=== PATIENT | male | born 1950 | race Caucasian/White ===

== ENCOUNTER 2017-05-27 09:45 | Inpatient (IN) | payer OTHER ==
[~2017-05-27] VITALS: Ht 180.3 cm; Wt 86.3 kg
[2017-05-27] MEDS ORDERED: KLONOPIN1 MG PO (10:02)
[2017-05-27 10:55] LABS: BASOPHIL % 0.2 % (0-2)
[2017-05-27 11:04] LABS: PLATELET COUNT 107 x10^3mcL (130-400)
[2017-05-27 11:07] LABS: CARBON DIOXIDE 20.6 mmol/L (21-32); CHLORIDE SERUM 99 mmol/L (98-107); GFR1 > 60 mL/min; GLUCOSE SERUM 105 mg/dL (74-106); POTASSIUM SERUM 3.6 mmol/L (3.5-5.1); SODIUM SERUM 131 mmol/L (136-145)
[2017-05-27 11:13] LABS: ALKALINE PHOSPHATASE 52 U/L (46-116); ALT/SGPT 46 U/L (16-63); AST/SGOT 66 U/L (15-37); TOTAL PROTEIN, SERUM 6.4 g/dL (6.4-8.2)
[2017-05-27 11:21] LABS: ALBUMIN 2.9 g/dL (3.4-5.0)
[2017-05-27 13:09] VITALS: BP 106/67
[2017-05-27 13:16] VITALS: Ht 180.3 cm; Wt 86.3 kg
[2017-05-27 13:59] LABS: T3 TOTAL 0.92 ng/mL
[2017-05-27 14:04] LABS: FREE T4 1.26 ng/dL (0.76-1.46); FREE THYROXINE INDEX 2.7 ug/dL (1.4-4.5); T4(THYROXINE) 8.4 ug/dL (4.7-13.3)
[2017-05-27 14:25] LABS: CHOLESTEROL/HDL RATIO 9.8; PHOSPHOROUS 2.5 mg/dL (2.5-4.9)
[2017-05-27 15:25] VITALS: BP 143/64
[2017-05-27 16:20] VITALS: BP 118/70; BP 18/70
[2017-05-27 22:06] VITALS: BP 132/76
[2017-05-27 22:17] LABS: microscopic required? YES; urine erythrocyte TRACE (NEGATIVE)
[2017-05-27 22:25] LABS: AMPHETAMINE QUAL UR NONE DETECTED (NEG <=1000)
[2017-05-28 05:33] VITALS: BP 128/71
[2017-05-28 06:52] LABS: BASOPHIL % 0.2 % (0-2)
[2017-05-28 07:04] LABS: CALCIUM 7.7 mg/dL (8.5-10.1); CARBON DIOXIDE 22.3 mmol/L (21-32); CHLORIDE SERUM 98 mmol/L (98-107); GFR1 > 60 mL/min; GLUCOSE SERUM 90 mg/dL (74-106); MAGNESIUM 2.1 mg/dL (1.8-2.4); PHOSPHOROUS 2.1 mg/dL (2.5-4.9); POTASSIUM SERUM 3.7 mmol/L (3.5-5.1); SODIUM SERUM 130 mmol/L (136-145)
[2017-05-28 07:07] LABS: PLATELET COUNT 85 x10^3mcL (130-400); RED CELL DISTRIBUTION WIDTH 15.1 % (11.5-14.5)
[2017-05-28 09:15] VITALS: BP 121/68; BP 125/70
[2017-05-28 13:20] VITALS: BP 121/66
[2017-05-28 17:58] VITALS: BP 138/96
[2017-05-28 21:55] VITALS: BP 117/70
[2017-05-29 06:00] LABS: BASOPHIL % 0.3 % (0-2)
[2017-05-29 06:01] LABS: PLATELET COUNT 86 x10^3mcL (130-400)
[2017-05-29 06:16] VITALS: BP 141/84
[2017-05-29 06:34] LABS: CALCIUM 7.7 mg/dL (8.5-10.1); CARBON DIOXIDE 25.1 mmol/L (21-32); CHLORIDE SERUM 100 mmol/L (98-107); GFR1 > 60 mL/min; GLUCOSE SERUM 91 mg/dL (74-106); MAGNESIUM 2.1 mg/dL (1.8-2.4); PHOSPHOROUS 2.4 mg/dL (2.5-4.9); POTASSIUM SERUM 4.1 mmol/L (3.5-5.1); SODIUM SERUM 135 mmol/L (136-145)
[2017-05-29 09:52] VITALS: BP 102/58
[2017-05-29] MEDS ORDERED: LIPI20 PO (09:57)
[2017-05-29] MEDS ORDERED: PLA75 PO (09:57)
[2017-05-29] MEDS ORDERED: MECLIZINE HCL12.5 MG PO (09:57)
[2017-05-29] MEDS ORDERED: ECO81 PO (09:57)
[2017-05-29] MEDS ORDERED: TEN25 PO (09:57)
[2017-05-29 12:03] VITALS: BP 101/61
[2017-05-29 15:56] VITALS: BP 101/61
[2017-05-29 17:34] VITALS: BP 140/77
== END 2017-05-29 17:57 | DRG 67 ==
LOC: ED 09:45 → DU 12:06
PROVIDERS: Emergency Medicine Emergency Medical Services; Family Medicine
DX: I65.22 Occlusion and stenosis of left carotid artery (principal); G93.41 Metabolic encephalopathy; N17.0 Acute kidney failure with tubular necrosis; E44.0 Moderate protein-calorie malnutrition; E87.1 Hypo-osmolality and hyponatremia; E86.0 Dehydration; E83.39 Other disorders of phosphorus metabolism; I10 Essential (primary) hypertension; K76.0 Fatty (change of) liver, not elsewhere classified; E78.1 Pure hyperglyceridemia; F41.1 Generalized anxiety disorder; Z87.891 Personal history of nicotine dependence; Z68.26 Body mass index [BMI] 26.0-26.9, adult
CPT/HCPCS: 82962; 83880; 84439; 87804; 97110-GP; 97116-GP; 97530-GP; J7030; Q0092; Q9967

== ENCOUNTER 2017-06-06 09:43 | Inpatient (IN) | payer OTHER ==
[~2017-06-06] VITALS: Ht 180.3 cm; Wt 87.5 kg
[~2017-06-06 09:43] MED LIST: ECO81 PO; KLONOPIN1 MG PO; LIPI20 PO; MECLIZINE HCL12.5 MG PO; PLA75 PO; TEN25 PO
[2017-06-06 09:57] VITALS: Ht 180.3 cm; Wt 87.5 kg
[2017-06-06] MEDS ORDERED: TRAZODONE50 M1 PO (11:26)
[2017-06-06 11:59] LABS: BASOPHIL % 0.7 % (0-2); PLATELET COUNT 221 x10^3mcL (130-400); RED CELL DISTRIBUTION WIDTH 14.9 % (11.5-14.5)
[2017-06-06 12:10] VITALS: BP 137/65
[2017-06-06 12:13] LABS: microscopic required? YES; urine erythrocyte NEGATIVE (NEGATIVE)
[2017-06-06 12:36] LABS: AMPHETAMINE QUAL UR NONE DETECTED (NEG <=1000)
[2017-06-06 13:01] LABS: CALCIUM 8.7 mg/dL (8.5-10.1); CARBON DIOXIDE 27.3 mmol/L (21-32); CHLORIDE SERUM 95 mmol/L (98-107); GFR1 > 60 mL/min; GLUCOSE SERUM 106 mg/dL (74-106); POTASSIUM SERUM 3.7 mmol/L (3.5-5.1); SODIUM SERUM 133 mmol/L (136-145)
[2017-06-06 13:05] LABS: ALKALINE PHOSPHATASE 101 U/L (46-116); ALT/SGPT 36 U/L (16-63); AST/SGOT 42 U/L (15-37); BILIRUBIN TOTAL 2.2 mg/dL (0.20-1.00)
[2017-06-06 13:06] LABS: ALBUMIN 3.1 g/dL (3.4-5.0)
[2017-06-06 13:20] LABS: CK-MB 4.3 ng/mL (0-3.6)
[2017-06-06 13:21] VITALS: BP 137/65
[2017-06-06 14:29] LABS: MAGNESIUM 2.7 mg/dL (1.8-2.4); PHOSPHOROUS 3.9 mg/dL (2.5-4.9)
[2017-06-06 14:40] LABS: T3 TOTAL 1.06 ng/mL
[2017-06-06 14:52] LABS: FREE T4 1.42 ng/dL (0.76-1.46); FREE THYROXINE INDEX 3.5 ug/dL (1.4-4.5); T4(THYROXINE) 10.8 ug/dL (4.7-13.3)
[2017-06-06 18:15] VITALS: BP 160/73
[2017-06-06 18:36] VITALS: BP 123/67
[2017-06-06 21:17] VITALS: BP 120/72
[2017-06-07 05:02] VITALS: BP 111/70
[2017-06-07 06:46] LABS: CALCIUM 7.8 mg/dL (8.5-10.1); CARBON DIOXIDE 23.6 mmol/L (21-32); CHLORIDE SERUM 99 mmol/L (98-107); CREATININE SERUM 0.9 mg/dL (0.7-1.3); GFR1 > 60 mL/min; GLUCOSE SERUM 94 mg/dL (74-106); POTASSIUM SERUM 3.2 mmol/L (3.5-5.1); SODIUM SERUM 134 mmol/L (136-145)
[2017-06-07 06:54] LABS: BASOPHIL % 0.5 % (0-2); PLATELET COUNT 172 x10^3mcL (130-400)
[2017-06-07 08:12] LABS: RED CELL DISTRIBUTION WIDTH 14.9 % (11.5-14.5)
[2017-06-07 08:38] VITALS: BP 112/61
[2017-06-07 13:15] VITALS: BP 125/71
[2017-06-07 19:05] VITALS: BP 133/76
[2017-06-08 00:15] VITALS: BP 104/71
[2017-06-08 03:00] VITALS: BP 123/60
[2017-06-08 05:53] LABS: BASOPHIL % 0.6 % (0-2); PLATELET COUNT 158 x10^3mcL (130-400)
[2017-06-08 05:55] LABS: RED CELL DISTRIBUTION WIDTH 15.2 % (11.5-14.5)
[2017-06-08 06:01] LABS: CALCIUM 7.5 mg/dL (8.5-10.1); CARBON DIOXIDE 27.3 mmol/L (21-32); CHLORIDE SERUM 103 mmol/L (98-107); CREATININE SERUM 0.7 mg/dL (0.7-1.3); GFR1 > 60 mL/min; GLUCOSE SERUM 112 mg/dL (74-106); POTASSIUM SERUM 3.9 mmol/L (3.5-5.1); SODIUM SERUM 136 mmol/L (136-145)
[2017-06-08 07:36] VITALS: BP 117/74
[2017-06-08 10:44] LABS: MAGNESIUM 2.4 mg/dL (1.8-2.4); PHOSPHOROUS 3.8 mg/dL (2.5-4.9)
[2017-06-08 14:03] VITALS: BP 105/61
[2017-06-08 17:32] VITALS: BP 124/67
[2017-06-08 21:56] VITALS: BP 137/64
[2017-06-09 05:14] VITALS: BP 129/66
[2017-06-09 07:17] LABS: BASOPHIL % 0.3 % (0-2); PLATELET COUNT 164 x10^3mcL (130-400)
[2017-06-09 07:20] LABS: RED CELL DISTRIBUTION WIDTH 14.8 % (11.5-14.5)
[2017-06-09 07:30] LABS: CALCIUM 7.4 mg/dL (8.5-10.1); CARBON DIOXIDE 27.5 mmol/L (21-32); CHLORIDE SERUM 100 mmol/L (98-107); CREATININE SERUM 0.8 mg/dL (0.7-1.3); GFR1 > 60 mL/min; GLUCOSE SERUM 87 mg/dL (74-106); MAGNESIUM 2.1 mg/dL (1.8-2.4); POTASSIUM SERUM 3.9 mmol/L (3.5-5.1); SODIUM SERUM 136 mmol/L (136-145)
[2017-06-09 08:51] VITALS: BP 140/74
[2017-06-09 14:00] VITALS: BP 116/77
[2017-06-09 17:00] VITALS: BP 140/84
[2017-06-09 21:14] VITALS: BP 132/80
[2017-06-10 05:04] VITALS: BP 156/54
[2017-06-10 08:00] LABS: BASOPHIL % 0.4 % (0-2); PLATELET COUNT 173 x10^3mcL (130-400)
[2017-06-10 08:05] LABS: RED CELL DISTRIBUTION WIDTH 15.1 % (11.5-14.5)
[2017-06-10 08:13] LABS: CALCIUM 8.3 mg/dL (8.5-10.1); CARBON DIOXIDE 27.6 mmol/L (21-32); CHLORIDE SERUM 101 mmol/L (98-107); CREATININE SERUM 0.7 mg/dL (0.7-1.3); GFR1 > 60 mL/min; GLUCOSE SERUM 95 mg/dL (74-106); MAGNESIUM 2.1 mg/dL (1.8-2.4); PHOSPHOROUS 3.4 mg/dL (2.5-4.9); POTASSIUM SERUM 3.8 mmol/L (3.5-5.1); SODIUM SERUM 136 mmol/L (136-145)
[2017-06-10 09:40] VITALS: BP 117/72
[2017-06-10 12:37] VITALS: BP 109/62
[2017-06-10 16:54] VITALS: BP 120/80
== END 2017-06-10 18:29 | disposition home health service (06) | DRG 37 ==
LOC: ED 09:43 → DU 11:10 → IC 06-07 19:07 → DU 06-08 12:00
PROVIDERS: Emergency Medicine; Family Medicine; Family Medicine Sports Medicine; Surgery
PROC: 03CJ0ZZ Extirpation of Matter from Left Common Carotid Artery, Open Approach (ICD-10-PCS; 2017-06-07)
PROC: 03CL0ZZ Extirpation of Matter from Left Internal Carotid Artery, Open Approach (ICD-10-PCS; 2017-06-07)
PROC: 03UL0KZ Supplement Left Internal Carotid Artery with Nonautologous Tissue Substitute, Open Approach (ICD-10-PCS; 2017-06-07)
PROC: 03CN0ZZ Extirpation of Matter from Left External Carotid Artery, Open Approach (ICD-10-PCS; principal; 2017-06-07 14:00)
DX: I65.22 Occlusion and stenosis of left carotid artery (principal); N17.0 Acute kidney failure with tubular necrosis; E87.1 Hypo-osmolality and hyponatremia; E44.0 Moderate protein-calorie malnutrition; E87.6 Hypokalemia; E83.41 Hypermagnesemia; I07.1 Rheumatic tricuspid insufficiency; I44.4 Left anterior fascicular block; F41.1 Generalized anxiety disorder; F17.210 Nicotine dependence, cigarettes, uncomplicated; I10 Essential (primary) hypertension; D64.9 Anemia, unspecified; Z79.82 Long term (current) use of aspirin; Z68.25 Body mass index [BMI] 25.0-25.9, adult
CPT/HCPCS: 84439; 97110-GP; 97535-GP; C1758; C1768; G0480; J0330; J0690; J1644; J1720; J2001; J2250; J2270; J2704; J2710; J2720; J3010; J3430; J3480; J3490; J7030; J7040; J7120; J8597; Q0092